=== PATIENT | female | born 1955 | race Caucasian/White ===

== ENCOUNTER 2018-08-02 13:09 | Emergency (ER) | payer MEDICARE, SELFPAY ==
[~2018-08-02] VITALS: Ht 154.9 cm; Wt 73.9 kg
[~2018-08-02 13:09] MED LIST: ACET65TA; ADVA1AER2; ALBU17IN2; ALBUTEROL INH; CADUET; CALCTAB22; CELE20TA OR; CELE40TA OR; CHLO25TA3 PO; CIPR500T19; CITA40TA PO; COMBVENT; DUONSOL; FLAG500T; IBUP600T OR; IBUP80TA PO; LIPI20TA OR; LISI5TAB PO; MAALSUS OR; MAG400TA PO; MELO7.5T3 PO; METF500T PO; METO10TA2; MILKSUS; MOTELUKAST PO; OMEP20TA7 OR; ONDA-1 OR; OXYC1TAB23 PO; PRAV1TAB39 PO; PROAIR; PROT1TAB2; SING10TA31; SUCR1TAB56 OR; THERGRAN; VICO5TAB OR; VIT D 2000 PO; VITAMIN D50000 UNT
[2018-08-02] MEDS ORDERED: VASC1CAP2 PO (13:25)
[2018-08-02] MEDS ORDERED: METO1TAB32 PO (13:25)
[2018-08-02] MEDS ORDERED: GLIM4TAB PO (13:25)
[2018-08-02] MEDS ORDERED: MORPHINE 10 MG/ML 1ML VIAL (J2270) IM ONE (13:45)
--- NOTE | 2018-08-02 14:44 | REP ---
Clinical: Trauma/fall with left shoulder pain . Technique: Internal rotation, external rotation, and Y view. Findings: No acute fracture or dislocation. The acromioclavicular and glenohumeral joints are intact. No periarticular calcifications or degenerative changes are appreciated. Sub acromial space is normal. Surrounding soft tissues are unremarkable. Impression: No definite acute fracture or dislocation appreciated. Electronically Signed by Steve Rivera MD 08/02/2018 02:36 P
--- NOTE | 2018-08-02 14:46 | REP ---
Clinical: Trauma/fall. Technique: AP and frog lateral views of the left hip. Findings: Mild age-related degenerative changes are appreciated including minimal increased sclerosis to the acetabular roof with subtle joint space narrowing. No acute fracture or dislocation. Impression: No acute fracture dislocation. Electronically Signed by Steve Rivera MD 08/02/2018 02:38 P
--- NOTE | 2018-08-02 14:47 | REP ---
Clinical: Trauma. Fall. Technique: AP, lateral, bilateral oblique views of the left ankle. Findings: Generalized age-related changes appreciated. Mild soft tissue swelling cannot be excluded. No acute fracture dislocation. Ankle mortise intact. Impression: Generalized age-related changes and mild swelling. No acute fracture or dislocation. Electronically Signed by Steve Rivera MD 08/02/2018 02:39 P
--- NOTE | 2018-08-02 14:49 | REP ---
Clinical: Trauma/fall. Technique: AP, lateral, bilateral oblique and sunrise views of the left knee. Findings: Mild generalized age-related changes are appreciated. There is no evidence for acute fracture dislocation. No effusion. Impression: Mild generalized changes. No acute fracture dislocation. Electronically Signed by Steve Rivera MD 08/02/2018 02:39 P
[2018-08-02] MEDS ORDERED: IBUPROFEN 600 MG TAB PO ONE (15:00)
[2018-08-02 15:04] VITALS: BP 118/65
[2018-08-02] MEDS ORDERED: IBUP80TA PO (15:09)
== END 2018-08-02 15:10 | disposition home or self-care (01) ==
LOC: M ED 13:09
DX: S93.402A Sprain of unspecified ligament of left ankle, initial encounter (principal); T14.8XXA Other injury of unspecified body region, initial encounter; W19.XXXA Unspecified fall, initial encounter; Y92.232 Corridor of hospital as the place of occurrence of the external cause; Y93.01 Activity, walking, marching and hiking; Y99.9 Unspecified external cause status; E78.00 Pure hypercholesterolemia, unspecified; D32.9 Benign neoplasm of meninges, unspecified; Z87.442 Personal history of urinary calculi; Z79.899 Other long term (current) drug therapy; Z91.013 Allergy to seafood; Z88.8 Allergy status to other drugs, medicaments and biological substances
CPT/HCPCS: 73030; 73502; 73564; 73610; 96372; 99284; J2270

== ENCOUNTER 2019-07-19 17:54 | Emergency (ER) | payer MEDICARE ==
[~2019-07-19] VITALS: Ht 154.9 cm; Wt 71.8 kg
[~2019-07-19 17:54] MED LIST changes: +GLIM4TAB5 PO; +METO1TAB32 PO; +VASC1CAP2 PO
[2019-07-19 18:11] VITALS: BP 138/65
--- NOTE | 2019-07-19 18:37 | REPVR ---
PROCEDURE INFORMATION: Exam: CT Head Without Contrast Exam date and time: 07/19/2019 6:14 PM Age: 64 years old Clinical indication: Injury or trauma; Fall; Initial encounter; Blunt trauma (contusions or hematomas); Additional info: Fall injury TECHNIQUE: Imaging protocol: Computed tomography of the head without contrast. Radiation optimization: All CT scans at this facility use at least one of these dose optimization techniques: automated exposure control; mA and/or kV adjustment per patient size (includes targeted exams where dose is matched to clinical indication); or iterative reconstruction. COMPARISON: CT Head without contrast 12/19/2012 7:23 PM FINDINGS: Brain: Small chronic inferior right basal ganglia lacunar infarct. Few scattered nonspecific hypodensities of the periventricular and deep subcortical white matter, most likely secondary to chronic small vessel ischemic change. No intracranial hemorrhage or extra-axial fluid collection. No evidence of mass effect or midline shift. Pinedo-white matter differentiation is normal. Ventricles: No ventriculomegaly. Bones/joints: No acute osseus lesion or fracture. Sinuses: Unremarkable as visualized. Mastoid air cells: Unremarkable. Soft tissues: Unremarkable. IMPRESSION: No acute intracranial pathology. Electronically signed by: Wagner Martinez On 07/19/2019 18:37:30 PM
--- NOTE | 2019-07-19 18:38 | REPVR ---
PROCEDURE INFORMATION: Exam: CT Cervical Spine Without Contrast Exam date and time: 07/19/2019 6:14 PM Age: 64 years old Clinical indication: Injury or trauma; Fall; Initial encounter; Blunt trauma; Additional info: Fall injury TECHNIQUE: Imaging protocol: Computed tomography images of the cervical spine without contrast. Radiation optimization: All CT scans at this facility use at least one of these dose optimization techniques: automated exposure control; mA and/or kV adjustment per patient size (includes targeted exams where dose is matched to clinical indication); or iterative reconstruction. COMPARISON: No relevant prior studies available. FINDINGS: Vertebrae: Vertebral body heights are maintained. No locked or perched facets. Multilevel facet arthropathy. No acute cervical spine fracture. The dens is intact. Atlanto-axial intervals are normal. Discs/Spinal canal/Neural foramina: Multilevel degenerative changes with intervertebral disc height loss and osteophyte formation, with multilevel areas of mild canal stenosis. Soft tissues: Unremarkable. Lungs: Lung apices are clear. IMPRESSION: No acute cervical spine fracture. Electronically signed by: Wagner Martinez On 07/19/2019 18:38:27 PM
[2019-07-19] MEDS ORDERED: ACETAMINOPHEN 325 MG TAB PO ONE (19:30)
--- NOTE | 2019-07-19 19:30 | REP ---
HISTORY: Pain after trauma. COMPARISON: None. FINDINGS: There is no acute fracture, dislocation, subluxation, or joint effusion. There are some degenerative changes. Electronically Signed by Humberto Ford DO 07/19/2019 07:36 P
--- NOTE | 2019-07-20 07:27 | REP ---
Clinical: Pain. Fall. Technique: Portable AP and lateral views of the right humerus. Findings: Age-related changes at the shoulder and elbow. No obvious acute fracture dislocation. No subcutaneous emphysema or foreign body. Impression: No acute fracture or dislocation appreciated. Electronically Signed by Steve Rivera MD 07/20/2019 07:19 A
== END 2019-07-19 21:02 | disposition home or self-care (01) ==
LOC: M ED 17:54
DX: S80.11XA Contusion of right lower leg, initial encounter (principal); S09.90XA Unspecified injury of head, initial encounter; W18.39XA Other fall on same level, initial encounter; Y92.018 Other place in single-family (private) house as the place of occurrence of the external cause; J44.9 Chronic obstructive pulmonary disease, unspecified; E11.9 Type 2 diabetes mellitus without complications; Z79.899 Other long term (current) drug therapy; Z79.84 Long term (current) use of oral hypoglycemic drugs; Z88.2 Allergy status to sulfonamides; Z88.8 Allergy status to other drugs, medicaments and biological substances; Z91.018 Allergy to other foods

== ENCOUNTER 2022-06-04 13:17 | Emergency (ER) | payer MEDICARE, MEDICAID ==
[~2022-06-04] VITALS: Ht 152.4 cm; Wt 69.7 kg
[2022-06-04 13:19] VITALS: BP 107/56
== END 2022-06-04 15:53 | disposition left against medical advice (07) ==
LOC: M ED 13:17
DX: Z53.21 Procedure and treatment not carried out due to patient leaving prior to being seen by health care provider (principal)

== ENCOUNTER → 2023-10-12 | Outpatient (CLI) | payer MEDICARE, MEDICAID | LOC: M RAD 13:10 | PROVIDERS: ATTEND Nurse Practitioner | DX: R91.8 Other nonspecific abnormal finding of lung field (principal); I70.0 Atherosclerosis of aorta; Z90.49 Acquired absence of other specified parts of digestive tract ==